=== PATIENT | male | born 1990 | race Caucasian/White ===

== ENCOUNTER 2020-10-27 16:32 | Emergency (ER) | payer SELFPAY ==
[2020-10-27 16:43] VITALS: BP 143/82; PULSE 84; RESP 20; TEMP 36.6; O2SAT 99
--- NOTE | 2020-10-27 16:50 | PC.NURSE ---
1643- Pt states, he has been out of his HTN medication for approx 1 month, contacted his PCP for refill this morning.
--- NOTE | 2020-10-27 17:28 | ED.EAR ---
HPI - Ear Problem General Chief complaint: Ear Stated complaint: ear infection Source: patient and RN notes reviewed Mode of arrival: ambulatory History of Present Illness HPI Narrative: This is a 30-year-old male who presented to urgent care with complaints of right ear pain according to patient he has been suffering a ear pain, ear ringing and loss of hearing for approximately 1 month. He notes that he also eardrop prescription for his pain with no relief. Denies any discharge from the affected ear. The patient denies SOB, CP, palpitation, extremity numbness, lightheadedness, dizziness, constipation, diarrhea, chills, foreign body or fever. MD Complaint: ear pain and decreased hearing Related Data Home Medications Medication Instructions Recorded Confirmed Unknown Htn Medication 10/27/20 Allergies Allergy/AdvReac Type Severity Reaction Status Date / Time Penicillins Allergy Unknown Verified 10/27/20 16:49 HYDROCODONE BIT Allergy Mild Uncoded 10/27/20 16:49 Review of Systems Review of Systems: A 14 organ system Review of Systems was performed and pertinent positives included in the HPI, otherwise remaining ROS is negative. [facility] Family History Family History (Updated 10/27/20 @ 17:30 by REMY Abarca-C) Other Family history non-contributory Social History Social History Gender identity (if verbalized by the patient): Male Exam Narrative: GENERAL: This is a well-nourished, well-developed patient, in no apparent distress. HEAD: normocephalic, atraumatic. EYES: PERRL. Sclera clear/white. Vision is grossly intact. EARS: External ears normal, auditory canals erythematous and without drainage, TMs edema with erythematous without perforation. Hearing grossly intact. NOSE: External nose normal with no obvious nasal discharge, nares without redness, no rhinorrhea. THROAT: Mucous membranes moist, posterior pharynx clear. NECK: Neck supple, non-tender without lymphadenopathy, masses or thyromegaly. CARDIOVASCULAR: Regular rate and rhythm without murmurs, gallops, or rubs. RESPIRATORY: Clear to auscultation. Breath sounds equal bilaterally. No wheezes, rales, or rhonchi. GASTROINTESTINAL: Abdomen soft, non-tender, nondistended. Bowel sounds are active. No hepato-splenomegaly, or palpable masses. No guarding. SKIN: warm, intact with no suspicious lesions or rash, good texture and turgor. NEURO: awake, alert, and oriented to person, place and time. There were no obvious focal neurologic abnormalities. Steady gait EXTREMITIES: Normal range of motion. No edema. No calf tenderness. Negative Homans sign bilaterally. BACK: Nontender without deformity or crepitance. No flank tenderness. Course Course Emergency Course: Patient will discharge with cefdinir, and pain medication Vital Signs Vital signs: Vital Signs Temperature 97.9 F 10/27/20 16:43 Pulse Rate 84 10/27/20 16:43 Respiratory Rate 20 10/27/20 16:43 Blood Pressure 143/82 H 10/27/20 16:43 Pulse Oximetry 99 10/27/20 16:43 Temperature 97.9 F 10/27/20 16:43 Pulse Rate 84 10/27/20 16:43 Respiratory Rate 20 10/27/20 16:43 Blood Pressure 143/82 H 10/27/20 16:43 Pulse Oximetry 99 10/27/20 16:43 Medical Decision Making Differential Diagnosis Differential Diagnosis: Otitis media, otitis externa Vital Signs Vital Signs: Vital Signs Temperature 97.9 F 10/27/20 16:43 Pulse Rate 84 10/27/20 16:43 Respiratory Rate 20 10/27/20 16:43 Blood Pressure 143/82 H 10/27/20 16:43 Pulse Oximetry 99 10/27/20 16:43 Temperature 97.9 F 10/27/20 16:43 Pulse Rate 84 10/27/20 16:43 Respiratory Rate 20 10/27/20 16:43 Blood Pressure 143/82 H 10/27/20 16:43 Pulse Oximetry 99 10/27/20 16:43 Discharge Plan Discharge Clinical Impression: Otitis media Qualifiers: Otitis media type: suppurative Chronicity: acute Laterality: right Recurrence: non-recurrent Spontaneous tympanic membrane rupture: with
== END 2020-10-27 17:34 | disposition home or self-care (01) ==
PROVIDERS: Emergency Provider Nurse Practitioner; PCP Nurse Practitioner Family
DX: H66.011 Acute suppurative otitis media with spontaneous rupture of ear drum, right ear (principal); H60.501 Unspecified acute noninfective otitis externa, right ear
CPT/HCPCS: 99213; G0463

== ENCOUNTER 2022-01-03 10:03 | Emergency (ER) | payer SELFPAY ==
[2022-01-03 10:14] VITALS: BP 144/91; PULSE 113; RESP 16; TEMP 37.3; O2SAT 98
--- NOTE | 2022-01-03 10:32 | ED.URI ---
HPI - URI/Sore Throat General Chief Complaint: Upper Respiratory Infection Stated Complaint: Dizziness,Cough,Sneezing Time Seen by Provider: 01/03/22 10:33 Source: patient and RN notes reviewed Mode of arrival: ambulatory Limitations: no limitations History of Present Illness HPI Narrative: 31-year-old male presented for complaint of dry cough, wheezing and nasal congestion this morning. 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 He is a daily smoker 1/2PPD. Denies n/v/d/f/c. He has taken Claritin, Mucinex and used a puff of his albuterol from previous visit. He also took an Epson salt bath this morning. Denies sick contacts. He states it feels like bronchitis. MD elicited complaint: cough Related Data Home Medications Medication Instructions Recorded Confirmed albuterol sulfate 90 mcg/actuation inhalation 01/03/22 aerosol inhaler quetiapine 100 mg tablet mg 01/03/22 Allergies Allergy/AdvReac Type Severity Reaction Status Date / Time Penicillins Allergy Unknown Unknown Verified 01/03/22 10:06 HYDROCODONE BIT Allergy Mild Unknown Uncoded 01/03/22 10:06 Review of Systems Review of Systems: CONSTITUTIONAL: Denies malaise, chills, sweats, fever EYES: Denies visual changes, redness, or discharge ENT: Reports rhinorrhea, congestion, sinus pain, otalgia CARDIOVASCULAR: Denies chest pain, palpitations, edema RESPIRATORY: Reports cough, post nasal drainage. Denies dyspnea GASTROINTESTINAL: Denies abdominal pain, nausea, vomiting, diarrhea SKIN: Denies rash or itching MUSCULOSKELETAL: Denies myalgia NEUROLOGIC: Denies headache [facility] Family History Family History Other Family history non-contributory Social History Social History Gender identity (if verbalized by the patient): Male Exam Narrative: GENERAL: Ill-appearing, nontoxic EYES: conjunctivae clear ENT: Mucous membranes moist. TMs erythematous with normal light reflex bilaterally; no tragal tenderness. Oropharynx erythematous without lesions or exudate CHEST: Faint exp wheezing to bases. No respiratory distress, speaks in full sentences. HEART: Regular rate and rhythm. No murmur heard. SKIN: Warm, dry, no rash. NEURO: Alert and oriented x3. PSYCH: Normal mood and affect Course Course Emergency Course: Patient is aware of diagnosis, understands and agrees to treatment plan. Anticipatory guidance given. Patient agrees to follow-up as directed and is aware of reasons to seek care at the emergency department. Portions of this record may have been created with voice recognition software Level of Care: Express Care Visit Vital Signs Vital signs: Vital Signs Temperature 99.2 F 01/03/22 10:14 Pulse Rate 113 H 01/03/22 10:14 Respiratory Rate 16 01/03/22 10:14 Blood Pressure 144/91 H 01/03/22 10:14 Pulse Oximetry 98 01/03/22 10:14 Oxygen Delivery Room Air 01/03/22 10:14 Temperature 99.2 F 01/03/22 10:14 Pulse Rate 113 H 01/03/22 10:14 Respiratory Rate 16 01/03/22 10:14 Blood Pressure 144/91 H 01/03/22 10:14 Pulse Oximetry 98 01/03/22 10:14 Oxygen Delivery Room Air 01/03/22 10:14 reviewed MDM - URI/Sore Throat MDM Narrative Medical decision making narrative: Denies PCN allergy. Advised supportive measures and signs/symptoms to go to the ER. Pt is appropriate for outpt treatment and f/u. Differential Diagnosis Differential diagnosis: Likely upper respiratory infection, sinusitis and viral infection Discharge Plan Discharge Clinical Impression: Upper respiratory infection Patient Disposition: Home, Self-Care Condition: Stable Additional Instructions: Recommend Flonase spray and Zyrtec (or Claritin/Paula). Avoid the D strength with hypertension. over the counter Cough syrup may cause drowsiness; avoid driving or take it a
== END 2022-01-03 10:44 | disposition home or self-care (01) ==
PROVIDERS: Emergency Provider Nurse Practitioner Family
DX: J06.9 Acute upper respiratory infection, unspecified (principal); F17.200 Nicotine dependence, unspecified, uncomplicated
CPT/HCPCS: 99213; G0463

== ENCOUNTER 2022-03-12 16:23 | Emergency (ER) | payer SELFPAY ==
[2022-03-12 16:57] VITALS: BP 165/103; PULSE 83; RESP 16; TEMP 36.6; O2SAT 98
--- NOTE | 2022-03-12 17:36 | ED.EAR ---
HPI - Ear Problem General Chief complaint: Ear Stated complaint: Left Ear Irritation Source: patient Mode of arrival: ambulatory Limitations: no limitations History of Present Illness HPI Narrative: 32-year-old male presents to [facility] with complaints of left ear pain for the past 2 weeks. Patient has been taking [id number] Aleve with minimal relief. Patient reports history of ear infections. Patient denies cough, congestion, runny nose, nausea, vomiting or diarrhea. MD Complaint: ear pain Location: left ear Duration: constant Relieving factors: nothing Exacerbating factors: nothing Treatment prior to arrival: oral analgesic Related Data Home Medications Medication Instructions Recorded Confirmed benztropine 1 mg tablet 1 mg PO DAILY 03/12/22 03/12/22 fluoxetine 40 mg capsule 40 mg PO DAILY 03/12/22 03/12/22 quetiapine 150 mg tablet 150 mg PO DAILY 03/12/22 03/12/22 Allergies Allergy/AdvReac Type Severity Reaction Status Date / Time Penicillins Allergy Unknown Rash Verified 03/12/22 17:17 HYDROCODONE BIT Allergy Mild Rash Uncoded 03/12/22 17:17 Review of Systems Constitutional: Constitutional: Denies chills, Denies fatigue, Denies fever(s) and Denies weakness ENT: Denies dizziness, Denies nasal congestion and Denies sore throat Comments: Left ear pain Cardiovascular: Cardiovascular: Denies chest pain Respiratory: Respiratory: Denies cough, Denies dyspnea and Denies wheezing Gastrointestinal: Gastrointestinal: Denies diarrhea, Denies nausea and Denies vomiting Musculoskeletal: Musculoskeletal: Denies arthralgias and Denies joint swelling Integumentary/Breasts: Skin/Breast: Denies rash PMFSH Family History Family History Other Family history non-contributory Social History Social History (Updated 03/12/22 @ 17:37 by Nicol Reese APRN) Smoking status: Current every day smoker Gender identity (if verbalized by the patient): Male Comments At time of signature, I agree with nursing past medical, surgical, social and family history. There is no relevant family history pertinent to the presenting complaint. Exam Const: General: healthy appearing and no acute distress Nutritional Appearance: well nourished Orientation/consciousness: patient oriented x3 Limitations: no limitations HENMT: Head: normal to inspection Ears: external ears normal, EAC's normal and TM abnormal dull on the left and erythematous on the left Face and sinus: normal facial exam Mouth: Yes Normal oral and palatal mucosa present and Yes moist mucous membranes Throat: posterior oropharynx normal and uvula midline Neck: Neck: normal visual inspection Resp: Effort & Inspection: normal respiratory effort and not labored Auscultation: clear to auscultation bilaterally, no crackles, no rales and no rhonchi Cardio: Rate: regular rate Rhythm: regular rhythm Heart sounds: no murmurs Skin: General skin exam: normal color Rashes: no rashes Neuro: General: patient oriented x3 Psych: Affect: normal affect Course Course Level of Care: Express Care Visit Vital Signs Vital signs: Vital Signs Temperature 36.6 C 03/12/22 16:57 Pulse Rate 83 03/12/22 16:57 Respiratory Rate 16 03/12/22 16:57 Blood Pressure 165/103 H 03/12/22 16:57 Pulse Oximetry 98 03/12/22 16:57 Oxygen Delivery Room Air 03/12/22 16:57 Temperature 36.6 C 03/12/22 16:57 Pulse Rate 83 03/12/22 16:57 Respiratory Rate 16 03/12/22 16:57 Blood Pressure 165/103 H 03/12/22 16:57 Pulse Oximetry 98 03/12/22 16:57 Oxygen Delivery Room Air 03/12/22 16:57 Medical Decision Making MDM Narrative Medical decision making narrative: instructed patient to take antibiotic as prescribed. He agrees to alternate Motrin and Tylenol as needed for pain. Patient agrees to follow up with primary care provider if symptoms do not improve Differential Diagnosi
== END 2022-03-12 17:44 | disposition home or self-care (01) ==
PROVIDERS: Emergency Provider Nurse Practitioner Family
DX: H66.92 Otitis media, unspecified, left ear (principal); F17.200 Nicotine dependence, unspecified, uncomplicated; I10 Essential (primary) hypertension; F31.9 Bipolar disorder, unspecified; G25.81 Restless legs syndrome
CPT/HCPCS: 99213; G0463

== ENCOUNTER 2022-05-15 15:00 | Emergency (ER) | payer SELFPAY ==
[2022-05-15 15:10] VITALS: BP 145/94; PULSE 104; RESP 16; TEMP 37.5; O2SAT 100
[2022-05-15 15:12] VITALS: BP 145/94; PULSE 104; RESP 16; TEMP 37.5; O2SAT 100
--- NOTE | 2022-05-15 15:28 | ED.URI ---
HPI - URI/Sore Throat General Chief Complaint: Upper Respiratory Infection Stated Complaint: sore throat/ear pain Time Seen by Provider: 05/15/22 15:28 Source: patient Mode of arrival: ambulatory Limitations: no limitations History of Present Illness HPI Narrative: 32-year-old male presents with complaint of left ear pain for 1 day. He reports sore throat and cough for 1 and half weeks. Is not taking any [id number] medications to treat his symptoms. Reports that he smokes 1 and half packs of cigarettes a day. Denies chest pain or shortness of breath. Afebrile. All Systems reviewed and negative except as noted above. Related Data Home Medications Medication Instructions Recorded Confirmed benztropine 1 mg tablet 1 mg PO DAILY 03/12/22 03/12/22 fluoxetine 40 mg capsule 40 mg PO DAILY 03/12/22 03/12/22 quetiapine 150 mg tablet 150 mg PO DAILY 03/12/22 03/12/22 Allergies Allergy/AdvReac Type Severity Reaction Status Date / Time Penicillins Allergy Unknown Rash Verified 05/15/22 15:11 HYDROCODONE BIT Allergy Mild Rash Uncoded 05/15/22 15:11 Review of Systems Review of Systems: CONSTITUTIONAL: Denies fever, chills, or sweats. EYES: Denies visual changes, redness, or discharge. ENT: Denies rhinorrhea, congestion. Reports sore throat, left ear pain. CARDIOVASCULAR: Denies chest pain, palpitations, or edema. RESPIRATORY: Reports cough. Denies dyspnea. GASTROINTESTINAL: Denies abdominal pain, nausea, vomiting, or diarrhea. GENITOURINARY: Denies dysuria or hematuria. SKIN: Denies rash or itching. MUSCULOSKELETAL: Denies back pain, joint pain, or myalgia. NEUROLOGIC: Denies headache, numbness, or weakness. PSYCHIATRIC: Denies anxiety or depression. All other systems reviewed are negative, except as documented in HPI. [facility] Family History Family History Other Family history non-contributory Social History Social History (Updated 03/12/22 @ 17:37 by Nicol Reese APRN) Smoking status: Current every day smoker Gender identity (if verbalized by the patient): Male Comments At time of signature, agree with nursing past medical, surgical, social and family history. There is no relevant family history pertinent to the presenting complaint. Exam Narrative: GENERAL: This is a well-nourished, well-developed patient, in no apparent distress. HEAD: normocephalic, atraumatic. EYES: PERRL. Sclera clear/white. Vision is grossly intact. EARS: External ears normal, auditory canals clear and without drainage, left TM erythematous and retracted. NOSE: External nose normal with no obvious nasal discharge, nares without redness, no rhinorrhea. THROAT: Mucous membranes moist, Pharynx erythematous, mild swelling. No exudates, no tonsillar swelling. NECK: Neck supple, non-tender without lymphadenopathy, masses or thyromegaly. CARDIOVASCULAR: Regular rate and rhythm without murmurs, gallops, or rubs. RESPIRATORY: Clear to auscultation. Breath sounds equal bilaterally. No wheezes, rales, or rhonchi. SKIN: warm, Dry, intact with no suspicious lesions or rash, good texture and turgor. NEURO: awake, alert, and oriented to person, place and time. There were no obvious focal neurologic abnormalities. EXTREMITIES: No joint tenderness, effusion, or edema noted. Course Course Level of Care: Express Care Visit Vital Signs Vital signs: Vital Signs Temperature 37.5 C 05/15/22 15:10 Pulse Rate 104 H 05/15/22 15:10 Respiratory Rate 16 05/15/22 15:10 Blood Pressure 145/94 H 05/15/22 15:10 Pulse Oximetry 100 05/15/22 15:10 Oxygen Delivery Room Air 05/15/22 15:10 Temperature 37.5 C 05/15/22 15:12 Pulse Rate 104 H 05/15/22 15:12 Respiratory Rate 16 05/15/22 15:12 Blood Pressure 145/94 H 05/15/22 15:12 Pulse Oximetry 100 05/15/22 15:12 Oxygen Delivery Room Air 05/15/22 15:12 Reviewed MDM - URI/Sore Throat MDM Narrativ
== END 2022-05-15 15:40 | disposition home or self-care (01) ==
PROVIDERS: Emergency Provider Nurse Practitioner Family; PCP Nurse Practitioner Family
DX: H66.92 Otitis media, unspecified, left ear (principal); J20.9 Acute bronchitis, unspecified; G25.81 Restless legs syndrome; I10 Essential (primary) hypertension; F17.200 Nicotine dependence, unspecified, uncomplicated
CPT/HCPCS: 87081; 87880; 99213; G0463

== ENCOUNTER 2022-12-17 18:12 | Emergency (ER) | payer SELFPAY ==
--- NOTE | ~2022-12-17 | XR_ITS ---
EXAMINATION: XR chest 2V Exam Date/Time: 12/17/2022 18:23 CDT HISTORY: CP x 2 days Comparison: 10/13/2015. RESULT: Lines, tubes, and devices: None. Lungs and pleura: Clear. Cardiomediastinal silhouette: Stable. Other: No acute osseous or upper abdominal finding. IMPRESSION: No acute cardiopulmonary process. Reviewed, dictated and finalized at location K.
--- NOTE | 2022-12-17 18:13 | ECG_ITS ---
Measurements Intervals [place] Rate: 92 P: 5 [place]: 124 QRS: 26 QRSD: 108 T: 45 QT: 356 QTc: 442 Interpretive Statements SINUS RHYTHM EARLY PRECORDIAL R/S TRANSITION BORDERLINE ECG NO PREVIOUS ECG AVAILABLE FOR COMPARISON Electronically Signed On 12-17-2022 18:51:36 CDT by Joss Jones D.O.
[2022-12-17 18:18] VITALS: BP 162/89; PULSE 76; RESP 15; TEMP 36.4; O2SAT 98
[2022-12-17 19:27] LABS: Basophils Absolute Auto 0.1 K/mm3 (0.0-0.1); Basophils Percent Auto 0.6 % (0.2-1.2); Eosinophils Absolute Auto 0.6 K/mm3 (0-0.3); Eosinophils Percent Auto 5.1 % (0-4.4); Hemoglobin 14.7 g/dL (14.0-18.0); Immature Granulocyte Absolute 0.08 K/mm3 (0.00-0.031); Immature Granulocyte Percent A 0.7 % (0-0.5); Lymphocytes Absolute Auto 2.98 K/mm3 (0.9-3.2); Lymphocytes Percent Auto 25.2 % (18.3-44.2); Mean Corpuscular HGB Conc 32.7 g/dl (32-36); Mean Corpuscular Hemoglobin 29.2 pg (26-34); Mean Corpuscular Volume 89.5 fl (80-100); Monocytes Absolute Auto 0.8 K/mm3 (0.1-0.6); Monocytes Percent Auto 6.8 % (2.6-8.5); Neutrophils Absolute Auto 7.3 K/mm3 (1.3-6.7); Neutrophils Percent Auto 61.6 % (45.5-73.1); Platelet Count Result 254 k/mm3 (150-375); Red Blood Count 5.03 M/mm3 (4.6-6.20); Red Cell Distribution Width 13.4 % (11.5-14.5); White Blood Count 11.8 K/mm3 (4.5-10.0)
[2022-12-17 19:37] LABS: Alanine Aminotransferase 75 U/L (6-50); Albumin Level 4.5 g/dL (3.5-5.1); Alkaline Phosphatase 68 U/L (38-126); Anion Gap 8 mmol/L (8-16); Aspartate Amino Transferase 57 U/L (17-59); Bilirubin,Total 0.7 mg/dL (0.2-1.3); Blood Urea Nitrogen 19 mg/dL (9-20); Calcium 9.1 mg/dL (8.4-10.2); Carbon Dioxide 21 mmol/L (22-30); Chloride 110 mmol/L (98-107); Estimated CRCL calculation 133 ml/min; Estimated Glomerular Filt Rate > 60; Glucose 91 mg/dL (65-110); Lipase 177 U/L (23-300); Potassium 3.9 mmol/L (3.4-5.0); Sodium 139 mmol/L (137-145)
[2022-12-17 19:45] LABS: Partial Thromboplastin Time 33.5 SECONDS (22.3-36.8)
[2022-12-17 19:47] LABS: Troponin I < 0.012 ng/mL (0.000-0.034)
[2022-12-17 20:22] VITALS: BP 139/85; PULSE 80; RESP 18; TEMP 36.4; O2SAT 95
--- NOTE | 2022-12-17 20:25 | PC.NURSE ---
Patient leaving at this time. Ambulatory with steady gait. Alert and oriented x4.
== END 2022-12-17 20:21 | disposition left against medical advice (07) ==
LOC: ANHED 20:27
PROVIDERS: Emergency Provider Emergency Medicine; PCP Nurse Practitioner Family
DX: R07.9 Chest pain, unspecified (principal)
CPT/HCPCS: 36415; 71046; 80053; 83690; 84484; 85025; 85610; 85730; 93005; 99199

== ENCOUNTER 2023-06-10 17:53 | Emergency (ER) | payer SELFPAY ==
--- NOTE | 2023-06-10 18:06 | ED.URI ---
HPI - URI/Sore Throat General Chief Complaint: Upper Respiratory Infection Stated Complaint: rsv exposure,ear pain,cough,bodyaches Time Seen by Provider: 06/10/23 18:50 Source: patient and RN notes reviewed Mode of arrival: ambulatory Limitations: no limitations History of Present Illness HPI Narrative: [age] year old male presents with concern for your pain, cough, body aches, runny nose, stuffy nose. Reports exposure to RSV. Reports his daughter has RSV. Reports he has been taking Mucinex MD elicited complaint: cough and rhinorrhea Related Data Home Medications Medication Instructions Recorded Confirmed amlodipine 10 mg tablet 10 mg PO DAILY 06/10/23 06/10/23 Allergies Allergy/AdvReac Type Severity Reaction Status Date / Time Penicillins Allergy Unknown Rash Verified 06/10/23 17:59 HYDROCODONE BIT Allergy Mild Rash Uncoded 06/10/23 17:59 Review of Systems Review of Systems: CONSTITUTIONAL: Denies malaise, chills, sweats, or fever. EYES: Denies visual changes, redness, or discharge. ENT: Reports rhinorrhea, congestion, ear pain CARDIOVASCULAR: Denies chest pain, palpitations, or edema. RESPIRATORY: Reports cough. Denies dyspnea. GASTROINTESTINAL: Denies abdominal pain, nausea, vomiting, diarrhea SKIN: Denies rash or itching. MUSCULOSKELETAL: Reports myalgia. NEUROLOGIC: Report headache. All systems reviewed & are unremarkable except as noted in HPI and below PMFSH Family History Family History Other Family history non-contributory Social History Social History (Updated 03/12/22 @ 17:37 by Nicol Reese APRN) Smoking status: Current every day smoker Gender identity (if verbalized by the patient): Male Comments At time of signature, agree with nursing past medical, surgical, social and family history. There is no relevant family history pertinent to the presenting complaint Exam Narrative: GENERAL: Nontoxic-appearing, well-nourished, and in no acute distress. HEAD: Normocephalic EYES: PERRLA, conjunctivae clear ENT: Nares clear. Mucous membranes moist. TM pearly sharpe with dull light reflex on the right, erythematous and bulging on the left; no tragal tenderness. Oropharynx not erythematous without lesions. Tonsils not enlarged and without exudate, no drooling, no hoarseness, no trismus, uvula midline. NECK: Supple. No lymphadenopathy CHEST: Clear to auscultation, breath sounds equal. No wheezing, rhonchi, rales, or stridor. No respiratory distress, speaks in full sentences. Cough noted HEART: Regular rate and rhythm. No murmur heard. SKIN: Warm, dry, no rash. NEURO: Alert and oriented x3. PSYCH: Normal mood and affect Course Course Emergency Course: Patient is aware of diagnosis, understands and agrees to treatment plan. Anticipatory guidance given. Patient agrees to follow-up as directed and is aware of reasons to seek care at the emergency department. Portions of this record may have been created with voice recognition software Level of Care: Express Care Visit Vital Signs Vital signs: Reviewed. MDM - URI/Sore Throat MDM Narrative Medical decision making narrative: Differential diagnosis considered: Wallace virus, strep pharyngitis, allergic rhinitis, upper respiratory tract infection, sinusitis, rhinosinusitis, nasopharyngitis. viral pharyngitis, otitis media, otitis externa, pneumonia, bronchitis, viral cough syndrome, viral syndrome, and influenza. Exam findings show no acute concerns or changes; patient is non-toxic appearing and is in no distress. Patient is appropriate for outpatient treatment and follow-up. Lab Data Attestation: I reviewed the patient's lab results. Critical Care Time Critical Care Time Critical Care Time: No Discharge Plan Discharge Clinical Impression: Otitis media, Cough Patient Disposition: Home, Self-Care Condition: Stable Instructions: Antibiotic Form, Ear Infection (
[2023-06-10 18:07] VITALS: BP 145/84; PULSE 109; RESP 16; TEMP 37.4; O2SAT 98
== END 2023-06-10 19:02 | disposition home or self-care (01) ==
PROVIDERS: Emergency Provider Nurse Practitioner
DX: H66.91 Otitis media, unspecified, right ear (principal); R05.9 Cough, unspecified; F17.200 Nicotine dependence, unspecified, uncomplicated; G25.81 Restless legs syndrome; I10 Essential (primary) hypertension
CPT/HCPCS: 99213; G0463

== ENCOUNTER 2023-08-28 14:22 | Emergency (ER) | payer SELFPAY ==
--- NOTE | ~2023-08-28 | XR_ITS ---
EXAMINATION: XR finger 1st RT min 2V DATE: 08/28/2023 14:47 INDICATION: Right thumb injury. TECHNIQUE: 3 views of right thumb were obtained. COMPARISON: Right hand radiographs 06/24/2013 FINDINGS: Bone alignment is normal. No fracture. There is mild osteoarthritis of first carpometacarpa l joint, first metacarpophalangeal joint, and first interphalangeal joint. IMPRESSION: 1. Mild polyarticular osteoarthritis. Reviewed, dictated and finalized at location A.
--- NOTE | 2023-08-28 14:23 | ED.UPPEXIN ---
HPI - Extremity Injury (Upper) General Chief Complaint: Extremity Injury, Upper Stated Complaint: right thumb injury Time Seen by Provider: 08/28/23 14:22 Source: patient Mode of arrival: ambulatory Limitations: no limitations History of Present Illness HPI narrative: Sharan is a 33-year-old male patient presenting to the clinic today with complaints of right thumb injury. He reports he was playing with his [place] Husky 3 weeks ago when he possibly dislocated his right thumb. Reports that his thumb was dislocated words his palm and he put it back in place. Is having persistent aching and pain to the right thumb over the MCP joint with radiation of pain into his wrist and forearm. Has been wearing a thumb spica splint at night which helps his pain however during the day when he is using his hand he states that the pain returns. Has been taking Aleve for pain. Related Data Home Medications Medication Instructions Recorded Confirmed amlodipine 10 mg tablet 10 mg PO DAILY 06/10/23 08/28/23 Allergies Allergy/AdvReac Type Severity Reaction Status Date / Time Penicillins Allergy Unknown Rash Verified 08/28/23 14:35 HYDROCODONE BIT Allergy Mild Rash Uncoded 06/10/23 17:59 Review of Systems Review of Systems: Pertinent positives per HPI. Patient denies any fever, chills, rash, headache, visual changes, dizziness, cough, runny nose, sore throat, shortness of breath, chest pain, palpitations, nausea, vomiting, diarrhea, constipation, abdominal pain, or any urinary issues. PMFSH Family History Family History Other Family history non-contributory Social History Social History Smoking status: Current every day smoker Gender identity (if verbalized by the patient): Male Comments At the time of my signature, I reviewed and agree with the nursing past medical, surgical, social, and family history. There is no relevant family history pertinent to the patient complaint. Exam Narrative: General: Well-developed, well nourished, in no apparent distress Head: Normocephalic, atraumatic. Cardio: Regular rate and rhythm, s1 and s2 normal, no murmur appreciated. Resp: Clear to auscultation bilaterally, no rhonchi, rales, wheezing or rubs. Musculoskeletal: No deformity, tender to palpation over the PIP joint and the MCP joint of the right thumb is able to flex and extend the thumb against resistance with mild pain has a lot of pain with touching the thumb to the palm and also hyperextending the thumb, muscle strength strong and equal, peripheral pulse strong, no edema, no cyanosis, normal gait and station Course Course Emergency Course: Portions of this record may have been created with voice recognition software. Level of Care: Express Care Visit Vital Signs Vital signs: Vital signs reviewed MDM - Extremity Injury (Upper) MDM Narrative Medical decision making narrative: At the time of visit patient is resting comfortably on the exam table. Patient appears to be nontoxic. Diagnostics: X-ray of the right thumb was performed Plan: I suspect patient has right thumb sprain. Supportive measures were discussed with the patient and they voiced understanding discharge instructions and agrees to treatment plan. Return precautions reviewed Differential Diagnosis Differential diagnosis: Likely finger sprain and other (Thumb fracture,) Discharge Plan Discharge Clinical Impression: Finger sprain Qualifiers: Encounter type: initial encounter Finger: thumb Sprain of finger site: metacarpophalangeal joint Laterality: right Qualified Code(s): S63.641A - Sprain of metacarpophalangeal joint of right thumb, initial encounter Patient Disposition: Home, Self-Care Condition: Stable Instructions: Antibiotic Form, Finger Sprain (ED) Additional Instructions: X-rays negative for any sign of fracture
[2023-08-28 14:32] VITALS: BP 145/74; PULSE 101; RESP 18; TEMP 37.4; O2SAT 98
== END 2023-08-28 15:04 | disposition home or self-care (01) ==
PROVIDERS: Emergency Provider Nurse Practitioner Family
DX: S63.641A Sprain of metacarpophalangeal joint of right thumb, initial encounter (principal); X58.XXXA Exposure to other specified factors, initial encounter; F17.200 Nicotine dependence, unspecified, uncomplicated
CPT/HCPCS: 73140; 99213; G0463